=== PATIENT | female | born 1980 | race Caucasian/White ===

== ENCOUNTER 2020-12-12 16:56 | Inpatient (IN) | payer SELFPAY ==
[~2020-12-12] VITALS: Ht 167.6 cm; Wt 55.0 kg
[2020-12-12] MEDS ORDERED: IV NORMAL SALINE 1000ML BAG 1,000 ML IV ONE (17:30)
[2020-12-12 17:36] LABS: BILIRUBIN,URINE NEGATIVE (NEG); NITRITE,URINE NEGATIVE (NEG); PH,URINE 7.5 (<5.0-8.0); PROTEIN,URINE NEGATIVE (NEG-TRACE); UROBILINOGEN,URINE 0.2 mg/dL (0.2 mg/dL)
[2020-12-12 17:43] LABS: BARBITURATES NEG (NEG); BENZODIAZEPINES NEG (NEG); CANNABINOIDS POS (NEG); CLARITY,URINE HAZY; COCAINE NEG (NEG); COLOR,URINE STRAW; METHADONE NEG (NEG); OPIATES NEG (NEG); PHENCYCLIDINE NEG (NEG)
[2020-12-12 17:44] LABS: BACTERIA,URINE MANY /HPF (0-FEW)
[2020-12-12 17:46] LABS: RBC,URINE 0 /HPF (0-2)
[2020-12-12 17:47] LABS: AMPHETAMINE/METHAMPHETAMINE NEG (NEG)
[2020-12-12 18:03] LABS: BASO # 0.1 x10^3/uL (0.0-0.2); BASO % 1 % (0-3); EOS # 0.2 x10^3/uL (0.0-0.7); EOS % 3 % (0-3); HEMATOCRIT 47.4 % (36.0-47.0); HEMOGLOBIN 16.6 g/dL (12.0-15.5); LYMPH # 4.6 x10^3/uL (1.0-4.8); LYMPH % 54 % (24-48); MEAN CORPUSCULAR HEMOGLOBIN 34 pg (25-35); MEAN CORPUSCULAR HGB CONC 35 g/dL (31-37); MEAN CORPUSCULAR VOLUME 98 fL (79-100); MONO # 0.5 x10^3/uL (0.0-1.1); MONO % 6 % (0-9); NEUT % 36 % (31-73); PLATELET COUNT 262 x10^3/uL (140-400); RED BLOOD COUNT 4.84 x10^6/uL (3.50-5.40); RED CELL DISTRIBUTION WIDTH 13.8 % (11.5-14.5); WHITE BLOOD COUNT 8.4 x10^3/uL (4.0-11.0)
[2020-12-12 18:18] LABS: CALCIUM 8.3 mg/dL (8.5-10.1); CREATININE 0.8 mg/dL (0.6-1.0); POTASSIUM 3.3 mmol/L (3.5-5.1)
[2020-12-12 18:22] LABS: ALBUMIN 4.2 g/dL (3.4-5.0); ALBUMIN/GLOBULIN RATIO 1.1 (1.0-1.7); TOTAL BILIRUBIN 0.2 mg/dL (0.2-1.0)
[2020-12-12 18:28] LABS: ACETAMIN < 2 mcg/ml (10-30); ETHANOL 360 mg/dL (0-10); SALIC 2.4 mg/dL (2.8-20.0)
[2020-12-12] MEDS ORDERED: MULTIVIT INFUSN,ADULT 4,VIT K 10 ML, THIAMINE INJ 100 MG, FOLIC ACID INJ 1 MG in IV NOR... IV ONE (18:45)
[2020-12-12] MEDS ORDERED: cefTRIAXone IV Push 1 GM VIAL. IVP ONE (18:45)
--- NOTE | 2020-12-12 19:08 | PHYS DOC ---
Past Medical History Additional Past Medical Histor: SI ([facility] Past Surgical History: ([facility]) Smoking Status: Current Every Day Smoker Additional Information: 0.25 PPD Alcohol Use: Heavy Additional Information: DRINKS 5 SHOTS OF WHISKEY DAILY (GIA MORALESSAHIL [facility]) General Adult EDM: Chief Complaint: SUICDAL IDEATION HPI: HPI: Patient is a 40 year old female who presents with had only 3 shots of whiskey a day when she usually has 5 shots a day and states she is hearing music in her head and she is suicidal but not homicidal. She states she does not have a plan. She does not currently know the date. She does know her name and place. She recently moved here from [place]. Patient has a history of seizures with detox from alcohol, depression, SI, no attempts, anxiety, . Denies any type of pain right now. ([facility]) Review of Systems: Review of Systems: Constitutional: Denies fever or chills. [] Eyes: Denies change in visual acuity. [] HENT: Denies nasal congestion or sore throat. [] Respiratory: Denies cough or shortness of breath. [] Cardiovascular: Denies chest pain or edema. [] GI: Denies abdominal pain, nausea, vomiting, bloody stools or diarrhea. [] : Denies dysuria. [] Musculoskeletal: Denies back pain or joint pain. [] Integument: Denies rash. [] Neurologic: Denies headache, focal weakness or sensory changes. [] Endocrine: Denies polyuria or polydipsia. [] Lymphatic: Denies swollen glands. [] Psychiatric: + depression or +anxiety. + Hearing music. + SI ([facility]) Heart Score: C/O Chest Pain: No (MARIA [facility] MORALES [facility]) Current Medications: Current Medications Medications (Trade) Dose Ordered Sig/Dawit Start Time Stop Time Status Last Admin Dose Admin Ceftriaxone Sodium (Rocephin) 1 gm 1X ONCE 12/12/20 18:45 12/12/20 18:46 DC Multivitamins 10 ml/Thiamine HCl 100 mg/Folic Acid 1 mg/Sodium Chloride 1,011.2 ml @ 1,000.088 mls/hr 1X ONCE 12/12/20 18:45 12/12/20 19:45 Sodium Chloride 1,000 ml @ 1,000 mls/hr 1X ONCE 12/12/20 17:30 12/12/20 18:29 DC 12/12/20 17:56 1,000 MLS/HR (MARIA GUADALUPE MORALES APRN) Allergies: Allergies: Allergies Coded Allergies Type Severity Reaction Last Updated Verified No Known Drug Allergies 12/12/20 No (MARIA GUADALUPE MORALES APRN) Physical Exam: PE: Constitutional: Well developed, well nourished, no acute distress, non-toxic appearance. [] HENT: Normocephalic, atraumatic, bilateral external ears normal, oropharynx moist, no oral exudates, nose normal. [] Eyes: PERRLA, EOMI, conjunctiva normal, no discharge. [] Neck: Normal range of motion, no tenderness, supple, no stridor. [] Cardiovascular:Heart rate regular rhythm, no murmur [] Lungs & Thorax: Bilateral breath sounds clear to auscultation [] Abdomen: Bowel sounds normal, soft, no tenderness, no masses, no pulsatile masses. [] Skin: Warm, dry, no erythema, no rash. [] Back: No tenderness, no CVA tenderness. [] Extremities: No tenderness, no cyanosis, no clubbing, ROM intact, no edema. [] Neurologic: Alert and oriented X 2, normal motor function, normal sensory function, no focal deficits noted. [] Psychologic: Affect normal, judgement normal, mood normal. [] (MARIA GUADALUPE MORALES APRN) Current Patient Data: Labs: Laboratory Tests Test 12/12/20 17:19 12/12/20 17:30 12/12/20 17:55 Urine Collection Type Void Urine Color Straw Urine Clarity Hazy Urine pH 7.5 (<5.0-8.0) Urine Specific [place] <=1.005 (1.000-1.030) Urine Protein Negative mg/dL (NEG-TRACE) Urine Glucose (UA) Negative mg/dL (NEG) Urine Ketones (Stick) Negative mg/dL (NEG) Urine Blood Negative (NEG) Urine Nitrite Negative (NEG) Urine Bilirubin Negative (NEG) Urine Urobilinogen Dipstick 0.2 mg/dL (0.2 mg/dL) Urine Leukocyte Esterase Moderate (NEG) Urine RBC 0 /HPF (0-2) Urine WBC 1-4 /HPF (0-4) Urine Squamous Epithelial Cells Many /LPF Urine Bacteria Many /HPF (0-FEW) Urine Opiates Screen Neg (NEG) Urine Methadone Screen Neg (NEG) Urine Barbiturates Neg (NEG) Urine Phencyclidine Screen Neg (NEG) Urine Amphetamine/Methamphetamine Neg (NEG) Urine Benzodiazepines Screen Neg (NEG) Urine Cocaine Screen Neg (NEG) Urine Cannabinoids Screen Pos (NEG) Urine Ethyl Alcohol Pos (NEG) POC Urine HCG, Qualitative Hcg negative (Negative) White Blood Count 8.4 x10^3/uL (4.0-11.0) Red Blood Count 4.84 x10^6/uL (3.50-5.40) Hemoglobin 16.6 g/dL (12.0-15.5) H Hematocrit 47.4 % (36.0-47.0) H Mean Corpuscular Volume 98 fL (79-100) Mean Corpuscular Hemoglobin 34 pg (25-35) Mean Corpuscular Hemoglobin Concent 35 g/dL (31-37) Red Cell Distribution Width 13.8 % (11.5-14.5) Platelet Count 262 x10^3/uL (140-400) Neutrophils (%) (Auto) 36 % (31-73) Lymphocytes (%) (Auto) 54 % (24-48) H Monocytes (%) (Auto) 6 % (0-9) Eosinophils (%) (Auto) 3 % (0-3) Basophils (%) (Auto) 1 % (0-3) Neutrophils # (Auto) 3.0 x10^3/uL (1.8-7.7) Lymphocytes # (Auto) 4.6 x10^3/uL (1.0-4.8) Monocytes # (Auto) 0.5 x10^3/uL (0.0-1.1) Eosinophils # (Auto) 0.2 x10^3/uL (0.0-0.7) Basophils # (Auto) 0.1 x10^3/uL (0.0-0.2) Sodium Level 150 mmol/L (136-145) H Potassium Level 3.3 mmol/L (3.5-5.1) L Chloride Level 110 mmol/L (98-107) H Carbon Dioxide Level 28 mmol/L (21-32) Anion Gap 12 (6-14) Blood Urea Nitrogen 7 mg/dL (7-20) Creatinine 0.8 mg/dL (0.6-1.0) Estimated GFR (Cockcroft-Gault) 79.0 BUN/Creatinine Ratio 9 (6-20) Glucose Level 106 mg/dL (70-99) H Calcium Level 8.3 mg/dL (8.5-10.1) L Magnesium Level 2.4 mg/dL (1.8-2.4) Total Bilirubin 0.2 mg/dL (0.2-1.0) Aspartate Amino Transferase (AST) 23 U/L (15-37) Alanine Aminotransferase (ALT) 20 U/L (14-59) Alkaline Phosphatase 87 U/L (46-116) Total Protein 8.0 g/dL (6.4-8.2) Albumin 4.2 g/dL (3.4-5.0) Albumin/Globulin Ratio 1.1 (1.0-1.7) Salicylates Level 2.4 mg/dL (2.8-20.0) L Salicylate Last Dose Date Unk Salicylate Last Dose Time Unk Acetaminophen Level < 2 mcg/ml (10-30) L Acetaminophen Last Dose Date Unk Acetaminophen Last Dose Time Unk Ethyl Alcohol Level 360 mg/dL (0-10) H Laboratory Tests 12/12/20 17:55 Laboratory Tests 12/12/20 17:55 Vital Signs: Vital Signs Date Time Temp Pulse Resp B/P (MAP) Pulse Ox O2 Delivery O2 Flow Rate FiO2 12/12/20 17:16 98.5 92 20 141/92 (108) 99 Room Air 98.5 (MARIA GUADALUPE MORALES APRN) EKG: EKG: [] (MARIA GUADALUPE MORALES APRN) Radiology/Procedures: Radiology/Procedures: [] (MARIA GUADALUPE MORALES APRN) Course & Med Decision Making: Course & Med Decision Making Pertinent Labs and Imaging studies reviewed. (See chart for details) See HPI. Alert and oriented x2. Speaks in full clear sentences. Answers my questions appropriately. Ambulatory with a steady gait. Alcohol level was 360. States that she would like to detox off of alcohol. No tremors currently. She states that she is always anxious. She is calm and cooperative at this time. 1:1 sitter is in the room with her. She admitted to hospitalist. She is received 1 bag of saline and a banana bag. Nursing staff giving patient CIWA 4. I put an order for PAT team. [] (MARIA GUADALUPE MORALES APRN) Course & Med Decision Making I have participated in the care of this patient and I have reviewed and agree with all pertinent clinical information above including history, exam, and recommendations. (AGUSTIN RITCHIE DO) Dragon Disclaimer: Dragon Disclaimer: This electronic medical record was generated, in whole or in part, using a voice recognition dictation system. (MARIA GUADALUPE MORALES APRN) Departure Departure Impression: Primary Impression: Alcohol intoxication Qualified Codes: F10.920 - Alcohol use, unspecified with intoxication, uncomplicated Additional Impressions: Hallucinations due to alcohol Suicidal ideations Disposition: ADMITTED INPATIENT Admitting Physician: JOSE MIGUEL (MARIA GUADALUPE MORALES APRN) Condition: STABLE MARIA GUADALUPE MORALES APRN Dec 12, 2020 19:07 AGUSTIN RITCHIE DO Dec 12, 2020 20:05
[2020-12-12] MEDS ORDERED: ACETAMINOPHEN 325 MG TABLET. PO ONE (20:15)
--- NOTE | 2020-12-12 20:56 | PDOC1 ---
History and Physical Date of Admission Date of Admission DATE: 12/12/20 TIME: 20:55 Identification/Chief Complaint Chief Complaint Intoxication, suicidal ideation Source Source: Chart review, Patient History of Present Illness History of Present Illness Ms Frederick is a 40 year old female w/ PMHx depression with anxiety, smoker, ETOH use disorder with prior withdrawal seizures who presents to ED via private vehicle complaining of suicidal ideation. Notes she drank some shots of [place] Honey to treat her anxiety and smoked some marijuana because she never feels like eating food. She notes she normally has at least 5shots a day and has previously been hospitalized for alcohol withdrawal seizures. Notes she has been depressed and suicidal for 4 years but decided tonight she no longer wants to live. She denies any homicidal ideation. She states she would drink herself to if she stayed home. She tells ED staff she recently moved here from [place]. She is audibly slurring her speech, states "I'm a fuck-up, nobody can love me, you're all just getting paid to hang out with me." WBC 8.4, Hb 16.6, platelets 262, NA 150, K3.3, BUN 7, CR 0.8, glucose 106, calcium 8.3, magnesium 2.4, LFTs within normal laboratory limits, urine hCG negative, moderate leukocyte esterase on UA, UDS positive for cannabinoids and ethanol tox screen negative for salicylates and acetaminophen level alcohol 360 mg/dL Admitted for further care. Past Medical History Psych: Depression Past Surgical History Past Surgical History: Family History Family History: Depression Social History Smoke: <1 pack per day ALCOHOL: heavy Drugs: Marijuana Current Problem List Problem List Problems Medical Problems: (1) Alcohol intoxication Status: Acute (2) Hallucinations due to alcohol Status: Acute (3) Suicidal ideations Status: Acute Current Medications Current Medications Current Medications Sodium Chloride 1,000 ml @ 1,000 mls/hr 1X ONCE IV Last administered on 12/12/20at 17:56; Start 12/12/20 at 17:30; Stop 12/12/20 at 18:29; Status DC Ceftriaxone Sodium (Rocephin) 1 gm 1X ONCE IVP Last administered on 12/12/20at 18:53; Start 12/12/20 at 18:45; Stop 12/12/20 at 18:46; Status DC Multivitamins 10 ml/Thiamine HCl 100 mg/Folic Acid 1 mg/Sodium Chloride 1,011.2 ml @ 1,000.088 mls/hr 1X ONCE IV Last administered on 12/12/20at 18:54; Start 12/12/20 at 18:45; Stop 12/12/20 at 19:45; Status DC Acetaminophen (Tylenol) 650 mg 1X ONCE PO Last administered on 12/12/20at 19:52; Start 12/12/20 at 20:15; Stop 12/12/20 at 20:16; Status DC Allergies Allergies: Coded Allergies: No Known Drug Allergies (Unverified , 12/12/20) ROS Review of System Unable to completely obtain due to intoxication. Denies everything but suicidal ideation after attempted 11 point ROS Physical Exam General: Cooperative, No acute distress HEENT: Atraumatic, PERRLA, EOMI, Mucous membr. moist/pink Lungs: Clear to auscultation, Normal air movement Heart: S1S2, RRR, no thrills, no rubs, no gallops, no murmurs Abdomen: Normal bowel sounds, Soft, No tenderness, No hepatosplenomegaly, No masses Extremities: No clubbing, No cyanosis, No edema, Normal pulses, No tenderness/swelling Skin: No rashes, No breakdown, No significant lesion Neuro: Strength at 5/5 X4 ext, Normal tone, Sensation intact, Cranial nerves 3- 12 NL, Reflexes 2+, Other (Slurred speech) Psych/Mental Status: Other (Confused, intoxicated) Vitals Vitals Vital Signs Date Time Temp Pulse Resp B/P (MAP) Pulse Ox O2 Delivery O2 Flow Rate FiO2 12/12/20 20:36 82 20 137/88 (104) 100 Room Air 12/12/20 17:16 98.5 98.5 Labs Labs Laboratory Tests Test 12/12/20 17:19 12/12/20 17:30 12/12/20 17:55 Urine Collection Type Void Urine Color Straw Urine Clarity Hazy Urine pH 7.5 (<5.0-8.0) Urine Specific [place] <=1.005 (1.000-1.030) Urine Protein Negative mg/dL (NEG-TRACE) Urine Glucose (UA) Negative mg/dL (NEG) Urine Ketones (Stick) Negative mg/dL (NEG) Urine Blood Negative (NEG) Urine Nitrite Negative (NEG) Urine Bilirubin Negative (NEG) Urine Urobilinogen Dipstick 0.2 mg/dL (0.2 mg/dL) Urine Leukocyte Esterase Moderate (NEG) Urine RBC 0 /HPF (0-2) Urine WBC 1-4 /HPF (0-4) Urine Squamous Epithelial Cells Many /LPF Urine Bacteria Many /HPF (0-FEW) Urine Opiates Screen Neg (NEG) Urine Methadone Screen Neg (NEG) Urine Barbiturates Neg (NEG) Urine Phencyclidine Screen Neg (NEG) Urine Amphetamine/Methamphetamine Neg (NEG) Urine Benzodiazepines Screen Neg (NEG) Urine Cocaine Screen Neg (NEG) Urine Cannabinoids Screen Pos (NEG) Urine Ethyl Alcohol Pos (NEG) Bedside Urine HCG, Qualitative Hcg negative (Negative) White Blood Count 8.4 x10^3/uL (4.0-11.0) Red Blood Count 4.84 x10^6/uL (3.50-5.40) Hemoglobin 16.6 g/dL (12.0-15.5) Hematocrit 47.4 % (36.0-47.0) Mean Corpuscular Volume 98 fL (79-100) Mean Corpuscular Hemoglobin 34 pg (25-35) Mean Corpuscular Hemoglobin Concent 35 g/dL (31-37) Red Cell Distribution Width 13.8 % (11.5-14.5) Platelet Count 262 x10^3/uL (140-400) Neutrophils (%) (Auto) 36 % (31-73) Lymphocytes (%) (Auto) 54 % (24-48) Monocytes (%) (Auto) 6 % (0-9) Eosinophils (%) (Auto) 3 % (0-3) Basophils (%) (Auto) 1 % (0-3) Neutrophils # (Auto) 3.0 x10^3/uL (1.8-7.7) Lymphocytes # (Auto) 4.6 x10^3/uL (1.0-4.8) Monocytes # (Auto) 0.5 x10^3/uL (0.0-1.1) Eosinophils # (Auto) 0.2 x10^3/uL (0.0-0.7) Basophils # (Auto) 0.1 x10^3/uL (0.0-0.2) Sodium Level 150 mmol/L (136-145) Potassium Level 3.3 mmol/L (3.5-5.1) Chloride Level 110 mmol/L (98-107) Carbon Dioxide Level 28 mmol/L (21-32) Anion Gap 12 (6-14) Blood Urea Nitrogen 7 mg/dL (7-20) Creatinine 0.8 mg/dL (0.6-1.0) Estimated GFR (Cockcroft-Gault) 79.0 BUN/Creatinine Ratio 9 (6-20) Glucose Level 106 mg/dL (70-99) Calcium Level 8.3 mg/dL (8.5-10.1) Magnesium Level 2.4 mg/dL (1.8-2.4) Total Bilirubin 0.2 mg/dL (0.2-1.0) Aspartate Amino Transf (AST/SGOT) 23 U/L (15-37) Alanine Aminotransferase (ALT/SGPT) 20 U/L (14-59) Alkaline Phosphatase 87 U/L (46-116) Total Protein 8.0 g/dL (6.4-8.2) Albumin 4.2 g/dL (3.4-5.0) Albumin/Globulin Ratio 1.1 (1.0-1.7) Salicylates Level 2.4 mg/dL (2.8-20.0) Salicylate Last Dose Date Unk Salicylate Last Dose Time Unk Acetaminophen Level < 2 mcg/ml (10-30) Acetaminophen Last Dose Date Unk Acetaminophen Last Dose Time Unk Ethyl Alcohol Level 360 mg/dL (0-10) Laboratory Tests Test 12/12/20 17:19 12/12/20 17:30 12/12/20 17:55 Urine Collection Type Void Urine Color Straw Urine Clarity Hazy Urine pH 7.5 (<5.0-8.0) Urine Specific [place] <=1.005 (1.000-1.030) Urine Protein Negative mg/dL (NEG-TRACE) Urine Glucose (UA) Negative mg/dL (NEG) Urine Ketones (Stick) Negative mg/dL (NEG) Urine Blood Negative (NEG) Urine Nitrite Negative (NEG) Urine Bilirubin Negative (NEG) Urine Urobilinogen Dipstick 0.2 mg/dL (0.2 mg/dL) Urine Leukocyte Esterase Moderate (NEG) Urine RBC 0 /HPF (0-2) Urine WBC 1-4 /HPF (0-4) Urine Squamous Epithelial Cells Many /LPF Urine Bacteria Many /HPF (0-FEW) Urine Opiates Screen Neg (NEG) Urine Methadone Screen Neg (NEG) Urine Barbiturates Neg (NEG) Urine Phencyclidine Screen Neg (NEG) Urine Amphetamine/Methamphetamine Neg (NEG) Urine Benzodiazepines Screen Neg (NEG) Urine Cocaine Screen Neg (NEG) Urine Cannabinoids Screen Pos (NEG) Urine Ethyl Alcohol Pos (NEG) Bedside Urine HCG, Qualitative Hcg negative (Negative) White Blood Count 8.4 x10^3/uL (4.0-11.0) Red Blood Count 4.84 x10^6/uL (3.50-5.40) Hemoglobin 16.6 g/dL (12.0-15.5) Hematocrit 47.4 % (36.0-47.0) Mean Corpuscular Volume 98 fL (79-100) Mean Corpuscular Hemoglobin 34 pg (25-35) Mean Corpuscular Hemoglobin Concent 35 g/dL (31-37) Red Cell Distribution Width 13.8 % (11.5-14.5) Platelet Count 262 x10^3/uL (140-400) Neutrophils (%) (Auto) 36 % (31-73) Lymphocytes (%) (Auto) 54 % (24-48) Monocytes (%) (Auto) 6 % (0-9) Eosinophils (%) (Auto) 3 % (0-3) Basophils (%) (Auto) 1 % (0-3) Neutrophils # (Auto) 3.0 x10^3/uL (1.8-7.7) Lymphocytes # (Auto) 4.6 x10^3/uL (1.0-4.8) Monocytes # (Auto) 0.5 x10^3/uL (0.0-1.1) Eosinophils # (Auto) 0.2 x10^3/uL (0.0-0.7) Basophils # (Auto) 0.1 x10^3/uL (0.0-0.2) Sodium Level 150 mmol/L (136-145) Potassium Level 3.3 mmol/L (3.5-5.1) Chloride Level 110 mmol/L (98-107) Carbon Dioxide Level 28 mmol/L (21-32) Anion Gap 12 (6-14) Blood Urea Nitrogen 7 mg/dL (7-20) Creatinine 0.8 mg/dL (0.6-1.0) Estimated GFR (Cockcroft-Gault) 79.0 BUN/Creatinine Ratio 9 (6-20) Glucose Level 106 mg/dL (70-99) Calcium Level 8.3 mg/dL (8.5-10.1) Magnesium Level 2.4 mg/dL (1.8-2.4) Total Bilirubin 0.2 mg/dL (0.2-1.0) Aspartate Amino Transf (AST/SGOT) 23 U/L (15-37) Alanine Aminotransferase (ALT/SGPT) 20 U/L (14-59) Alkaline Phosphatase 87 U/L (46-116) Total Protein 8.0 g/dL (6.4-8.2) Albumin 4.2 g/dL (3.4-5.0) Albumin/Globulin Ratio 1.1 (1.0-1.7) Salicylates Level 2.4 mg/dL (2.8-20.0) Salicylate Last Dose Date Unk Salicylate Last Dose Time Unk Acetaminophen Level < 2 mcg/ml (10-30) Acetaminophen Last Dose Date Unk Acetaminophen Last Dose Time Unk Ethyl Alcohol Level 360 mg/dL (0-10) VTE Prophylaxis Ordered VTE Prophylaxis Devices: No VTE Pharmacological Prophylaxi: No Assessment/Plan Assessment/Plan A/P: Acute toxic encephalopathy - due to alcohol. Due to expression of suicidal ideation and impairment not safe for discharge out of the hospital Suicidal ideation - 1:1 sitter given concomitant intoxication. PAT nurse liaison consulted. Dysuria - rocephin, f/u cultures Hypernatremia - likely hypovolemic, will hydrate Hypokalemia - hydrate with D51/2NSS with 20meq KCL after thiamine administration ETOH use disorder - with h/o alcohol withdrawal seizures, will place on CIWA protocol FEN - general diet PPX - ambulatory FULL CODE Dispo - inpatient Justifications for Admission Other Justification ARETHA CARABALLO MD Dec 12, 2020 20:56
[2020-12-12] MEDS ORDERED: KETOROLAC 30 MG/ML VIAL. IVP PRN (21:00)
[2020-12-12] MEDS ORDERED: HALOPERIDOL LACTATE 5 MG/ML VIAL. IVP PRN (21:00)
[2020-12-12] MEDS ORDERED: cloNIDine HCL 0.1 MG TABLET PO PRN (21:00)
[2020-12-12] MEDS ORDERED: diphenhydrAMINE 50 MG/ML VIAL IVP PRN (21:00)
[2020-12-12] MEDS ORDERED: POTASSIUM CL 20MEQ D5-0.45NACL 1,000 ML IV SCH (21:00)
[2020-12-13] VITALS (7 sets, daily range): BP systolic 104–135; BP diastolic 53–77
[2020-12-13 04:49] LABS: CALCIUM 7.3 mg/dL (8.5-10.1); CREATININE 0.7 mg/dL (0.6-1.0); GFR 92.2; POTASSIUM 3.9 mmol/L (3.5-5.1)
[2020-12-13] MEDS: ACETAMINOPHEN 325 MG TABLET. PO PRN ×2 (07:42→20:07)
[2020-12-13] MEDS: ONDANSETRON PF 4 MG/2 ML VIAL. IVP PRN ×2 (08:16→20:07)
--- NOTE | 2020-12-13 09:27 | PDOC ---
[facility] [facility] PROGRESS NOTE Date of Service DOS: DATE: 12/13/20 TIME: 09:25 Chief Complaint Chief Complaint Acute toxic encephalopathy - due to alcohol. Due to expression of suicidal ideation and impairment not safe for discharge out of the hospital Suicidal ideation - 1:1 sitter given concomitant intoxication. PAT nurse liaison consulted. Dysuria - rocephin, f/u cultures Hypernatremia - likely hypovolemic, will hydrate Hypokalemia - hydrate with D51/2NSS with 20meq KCL after thiamine administration ETOH use disorder - with h/o alcohol withdrawal seizures, will place on CIWA protocol FEN - general diet PPX - ambulatory FULL CODE Dispo - inpatient History of Present Illness History of Present Illness Ms Frederick is a 40 year old female w/ PMHx depression with anxiety, smoker, ETOH use disorder with prior withdrawal seizures who presents to ED via private vehicle complaining of suicidal ideation. Notes she drank some shots of Greek Honey to treat her anxiety and smoked some marijuana because she never feels like eating food. She notes she normally has at least 5shots a day and has previously been hospitalized for alcohol withdrawal seizures. Notes she has been depressed and suicidal for 4 years but decided tonight she no longer wants to live. She denies any homicidal ideation. She states she would drink herself to if she stayed home. She tells ED staff she recently moved here from [place]. She is audibly slurring her speech, states "I'm a fuck-up, nobody can love me, you're all just getting paid to hang out with me." WBC 8.4, Hb 16.6, platelets 262, NA 150, K3.3, BUN 7, CR 0.8, glucose 106, calcium 8.3, magnesium 2.4, LFTs within normal laboratory limits, urine hCG negative, moderate leukocyte esterase on UA, UDS positive for cannabinoids and ethanol tox screen negative for salicylates and acetaminophen level alcohol 360 mg/dL 12/13: No acute events overnight. Sitter at bedside. Not answering all of my questions, does not appear to be 100% coherent at this time. PAT team following for safe discharge planning for possible inpatient psychiatric treatment. Vitals/I&O Vitals/I&O: Vital Signs Date Time Temp Pulse Resp B/P (MAP) Pulse Ox O2 Delivery O2 Flow Rate FiO2 12/13/20 08:03 Room Air 12/13/20 07:20 98.9 54 16 122/71 (88) 99 98.9 I & O 12/12/20 12/12/20 12/13/20 15:00 23:00 07:00 Intake Total 2011.2 ml 720 ml Balance 2011.2 ml 720 ml Physical Exam General: Alert, Cooperative, No acute distress Heart: Regular rate Lungs: Clear Abdomen: Normal bowel sounds, Soft, No tenderness, No hepatosplenomegaly, No masses Extremities: No clubbing, No cyanosis, No edema, Normal pulses, No tenderness/swelling Skin: No rashes, No breakdown, No significant lesion Labs Labs: Laboratory Tests Test 12/12/20 17:19 12/12/20 17:30 12/12/20 17:55 12/13/20 04:00 Urine Collection Type Void Urine Color Straw Urine Clarity Hazy Urine pH 7.5 (<5.0-8.0) Urine Specific [place] <=1.005 (1.000-1.030) Urine Protein Negative mg/dL (NEG-TRACE) Urine Glucose (UA) Negative mg/dL (NEG) Urine Ketones (Stick) Negative mg/dL (NEG) Urine Blood Negative (NEG) Urine Nitrite Negative (NEG) Urine Bilirubin Negative (NEG) Urine Urobilinogen Dipstick 0.2 mg/dL (0.2 mg/dL) Urine Leukocyte Esterase Moderate (NEG) Urine RBC 0 /HPF (0-2) Urine WBC 1-4 /HPF (0-4) Urine Squamous Epithelial Cells Many /LPF Urine Bacteria Many /HPF (0-FEW) Urine Opiates Screen Neg (NEG) Urine Methadone Screen Neg (NEG) Urine Barbiturates Neg (NEG) Urine Phencyclidine Screen Neg (NEG) Urine Amphetamine/Methamphetamine Neg (NEG) Urine Benzodiazepines Screen Neg (NEG) Urine Cocaine Screen Neg (NEG) Urine Cannabinoids Screen Pos (NEG) Urine Ethyl Alcohol Pos (NEG) Bedside Urine HCG, Qualitative Hcg negative (Negative) White Blood Count 8.4 x10^3/uL (4.0-11.0) Red Blood Count 4.84 x10^6/uL (3.50-5.40) Hemoglobin 16.6 g/dL (12.0-15.5) Hematocrit 47.4 % (36.0-47.0) Mean Corpuscular Volume 98 fL (79-100) Mean Corpuscular Hemoglobin 34 pg (25-35) Mean Corpuscular Hemoglobin Concent 35 g/dL (31-37) Red Cell Distribution Width 13.8 % (11.5-14.5) Platelet Count 262 x10^3/uL (140-400) Neutrophils (%) (Auto) 36 % (31-73) Lymphocytes (%) (Auto) 54 % (24-48) Monocytes (%) (Auto) 6 % (0-9) Eosinophils (%) (Auto) 3 % (0-3) Basophils (%) (Auto) 1 % (0-3) Neutrophils # (Auto) 3.0 x10^3/uL (1.8-7.7) Lymphocytes # (Auto) 4.6 x10^3/uL (1.0-4.8) Monocytes # (Auto) 0.5 x10^3/uL (0.0-1.1) Eosinophils # (Auto) 0.2 x10^3/uL (0.0-0.7) Basophils # (Auto) 0.1 x10^3/uL (0.0-0.2) Sodium Level 150 mmol/L (136-145) 141 mmol/L (136-145) Potassium Level 3.3 mmol/L (3.5-5.1) 3.9 mmol/L (3.5-5.1) Chloride Level 110 mmol/L (98-107) 108 mmol/L (98-107) Carbon Dioxide Level 28 mmol/L (21-32) 25 mmol/L (21-32) Anion Gap 12 (6-14) 8 (6-14) Blood Urea Nitrogen 7 mg/dL (7-20) 7 mg/dL (7-20) Creatinine 0.8 mg/dL (0.6-1.0) 0.7 mg/dL (0.6-1.0) Estimated GFR (Cockcroft-Gault) 79.0 92.2 BUN/Creatinine Ratio 9 (6-20) Glucose Level 106 mg/dL (70-99) 87 mg/dL (70-99) Calcium Level 8.3 mg/dL (8.5-10.1) 7.3 mg/dL (8.5-10.1) Magnesium Level 2.4 mg/dL (1.8-2.4) Total Bilirubin 0.2 mg/dL (0.2-1.0) Aspartate Amino Transf (AST/SGOT) 23 U/L (15-37) Alanine Aminotransferase (ALT/SGPT) 20 U/L (14-59) Alkaline Phosphatase 87 U/L (46-116) Total Protein 8.0 g/dL (6.4-8.2) Albumin 4.2 g/dL (3.4-5.0) Albumin/Globulin Ratio 1.1 (1.0-1.7) Salicylates Level 2.4 mg/dL (2.8-20.0) Salicylate Last Dose Date Unk Salicylate Last Dose Time Unk Acetaminophen Level < 2 mcg/ml (10-30) Acetaminophen Last Dose Date Unk Acetaminophen Last Dose Time Unk Ethyl Alcohol Level 360 mg/dL (0-10) Assessment and Plan Assessmemt and Plan Problems Medical Problems: (1) Alcohol intoxication Status: Acute (2) Hallucinations due to alcohol Status: Acute (3) Suicidal ideations Status: Acute Comment Review of Relevant I have reviewed the following items edilia (where applicable) has been applied. Medications: Current Medications Medications (Trade) Dose Ordered Sig/Dawit Route PRN Reason Start Time Stop Time Status Last Admin Dose Admin Sodium Chloride 1,000 ml @ 1,000 mls/hr 1X ONCE IV 12/12/20 17:30 12/12/20 18:29 DC 12/12/20 17:56 Ceftriaxone Sodium (Rocephin) 1 gm 1X ONCE IVP 12/12/20 18:45 12/12/20 18:46 DC 12/12/20 18:53 Multivitamins 10 ml/Thiamine HCl 100 mg/Folic Acid 1 mg/Sodium Chloride 1,011.2 ml @ 1,000.088 mls/hr 1X ONCE IV 12/12/20 18:45 12/12/20 19:45 DC 12/12/20 18:54 Acetaminophen (Tylenol) 650 mg 1X ONCE PO 12/12/20 20:15 12/12/20 20:16 DC 12/12/20 19:52 Acetaminophen (Tylenol) 650 mg PRN Q6HRS PRN PO MILD PAIN / TEMP > 100.3'F 12/12/20 21:00 12/13/20 07:42 Ondansetron HCl (Zofran) 4 mg PRN Q4HRS PRN IVP NAUSEA/VOMITING 12/12/20 21:00 12/13/20 08:16 Potassium Chloride/Dextrose/ Sod Cl 1,000 ml @ 80 mls/hr [id number] IV 12/12/20 21:00 12/13/20 09:29 12/12/20 22:15 Lorazepam (Ativan Inj) 2 mg PRN Q1HR PRN IV For CIWA 15 or greater 12/12/20 21:00 12/13/20 07:40 Justifications for Admission Other Justification ERIN LESLIE MD Dec 13, 2020 09:26
--- NOTE | 2020-12-13 19:30 | NUR ---
Pt in bed assessment completed vss poc explained pt c/o abd. pain ,headache ,and nausea will medicate pt and continue to monitor pt.
[2020-12-14 02:48] VITALS: BP 139/75
[2020-12-14 07:00] VITALS: BP 117/57
--- NOTE | 2020-12-14 07:52 | PDOC ---
[employer] [facility] PROGRESS NOTE Date of Service DOS: DATE: 12/14/20 TIME: 07:50 Chief Complaint Chief Complaint Acute toxic encephalopathy - due to alcohol. Due to expression of suicidal ideation and impairment not safe for discharge out of the hospital Suicidal ideation - 1:1 sitter given concomitant intoxication. PAT nurse liaison consulted. Dysuria - rocephin, f/u cultures Hypernatremia - likely hypovolemic, will hydrate Hypokalemia - hydrate with D51/2NSS with 20meq KCL after thiamine administration ETOH use disorder - with h/o alcohol withdrawal seizures, will place on CIWA protocol FEN - general diet PPX - ambulatory FULL CODE Dispo - inpatient History of Present Illness History of Present Illness Ms Frederick is a 40 year old female w/ PMHx depression with anxiety, smoker, ETOH use disorder with prior withdrawal seizures who presents to ED via private vehicle complaining of suicidal ideation. Notes she drank some shots of Pakistani Honey to treat her anxiety and smoked some marijuana because she never feels like eating food. She notes she normally has at least 5shots a day and has previously been hospitalized for alcohol withdrawal seizures. Notes she has been depressed and suicidal for 4 years but decided tonight she no longer wants to live. She denies any homicidal ideation. She states she would drink herself to if she stayed home. She tells ED staff she recently moved here from [place]. She is audibly slurring her speech, states "I'm a fuck-up, nobody can love me, you're all just getting paid to hang out with me." WBC 8.4, Hb 16.6, platelets 262, NA 150, K3.3, BUN 7, CR 0.8, glucose 106, calcium 8.3, magnesium 2.4, LFTs within normal laboratory limits, urine hCG negative, moderate leukocyte esterase on UA, UDS positive for cannabinoids and ethanol tox screen negative for salicylates and acetaminophen level alcohol 360 mg/dL 12/13: No acute events overnight. Sitter at bedside. Not answering all of my questions, does not appear to be 100% coherent at this time. PAT team following for safe discharge planning for possible inpatient psychiatric treatment. 12/14: Requiring p.o. and IV Ativan yesterday and this morning. Currently resting comfortably in bed. PAT team following for safe discharge planning for possible inpatient psychiatric treatment. Continue treatment for alcohol withdrawal. Vitals/I&O Vitals/I&O: Vital Signs Date Time Temp Pulse Resp B/P (MAP) Pulse Ox O2 Delivery O2 Flow Rate FiO2 12/14/20 07:00 98.0 60 18 117/57 (77) 99 Room Air 98.0 I & O 12/13/20 12/13/20 12/14/20 15:00 23:00 07:00 Intake Total 240 ml 600 ml 0 ml Balance 240 ml 600 ml 0 ml Physical Exam General: Alert, Cooperative, No acute distress Heart: Regular rate Lungs: Clear Abdomen: Normal bowel sounds, Soft, No tenderness, No hepatosplenomegaly, No masses Extremities: No clubbing, No cyanosis, No edema, Normal pulses, No ten derness/swelling Skin: No rashes, No breakdown, No significant lesion Assessment and Plan Assessmemt and Plan Problems Medical Problems: (1) Alcohol intoxication Status: Acute (2) Hallucinations due to alcohol Status: Acute (3) Suicidal ideations Status: Acute Comment Review of Relevant I have reviewed the following items edilia (where applicable) has been applied. Justifications for Admission Other Justification ERIN LESLIE MD Dec 14, 2020 07:52
[2020-12-14 10:33] VITALS: BP 120/75
[2020-12-14] MEDS: ONDANSETRON PF 4 MG/2 ML VIAL. IVP PRN (11:23)
[2020-12-17] MEDS ORDERED: FOLIC ACID 1 MG TABLET. PO SCH (09:00)
[2020-12-17] MEDS ORDERED: MULTIVITAMIN with MINERAL TABLET. PO SCH (09:00)
[2020-12-17] MEDS ORDERED: THIAMINE 100 MG TABLET. PO SCH (09:00)
== END 2020-12-14 13:30 | disposition left against medical advice (07) | DRG 92 ==
LOC: ER 16:56 → ED HOLD 18:55 → 6 SOUTH 12-13 00:08
PROVIDERS: ADMIT Internal Medicine; ATTEND Internal Medicine
DX: G92.9 Unspecified toxic encephalopathy (principal); F10.239 Alcohol dependence with withdrawal, unspecified; R45.851 Suicidal ideations; E87.0 Hyperosmolality and hypernatremia; E87.6 Hypokalemia; F10.220 Alcohol dependence with intoxication, uncomplicated; F12.90 Cannabis use, unspecified, uncomplicated; F17.210 Nicotine dependence, cigarettes, uncomplicated; F41.9 Anxiety disorder, unspecified; Z81.8 Family history of other mental and behavioral disorders; F41.8 Other specified anxiety disorders; T51.92XA Toxic effect of unspecified alcohol, intentional self-harm, initial encounter; Y92.89 Other specified places as the place of occurrence of the external cause
CPT/HCPCS: 36415; 80048; 80053; 80307; 80329; 81001; 81025; 83735; 85025; 87077; 87086; 87186; 96361; 96365; 96375; G0480; J0696; J2060; J2405; J3411; J3480; J3490; J7030; 99285-25; G0378